=== PATIENT | male | born 1950 | race Caucasian/White ===

== ENCOUNTER 2025-01-15 23:25 | Observation (INO) ==
[2025-01-15 23:37] VITALS: TEMP 97.7
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
[2025-01-16 00:50] LABS: Basophils # (auto) 0.07 K/uL (0.00-0.20); Basophils % (auto) 0.6 %; Eosinophils # (auto) 0.04 K/uL (0.00-0.50); Eosinophils % (auto) 0.3 %; Hematocrit (blood only) 47.5 % (42.0-52.0); Hemoglobin 16.3 g/dl (14.0-18.0); Immature Granulocytes # (auto) 0.05 K/uL (0.01-0.20); Immature Granulocytes % (auto) 0.4 %; Lymphocytes # (auto) 2.09 K/uL (1.20-3.40); Lymphocytes % (auto) 16.5 %; Mean Corpuscular Hemoglobin 29.9 pg (25.0-34.0); Mean Corpuscular Hgb Conc 34.3 g/dL (32.0-36.0); Mean Corpuscular Volume 87.2 fL (80.0-100.0); Mean Platelet Volume 9.9 fL (9.4-12.4); Monocytes # (auto) 1.36 K/uL (0.11-0.59); Monocytes % (auto) 10.8 %; Neutrophils # (auto) 9.04 K/uL (1.40-6.50); Neutrophils % (auto) 71.4 %; Platelet Count 278 K/uL (130-400); RDW Coefficient of Variation 13.4 % (11.5-14.5); RDW Standard Deviation 42.2 fL (36.4-46.3); Red Blood Count 5.45 M/uL (4.70-6.10); White Blood Count 12.65 K/ul (4.8-10.8)
[2025-01-16 00:59] LABS: Albumin Globulin Ratio 1.2 (0.9-2); Albumin Level 3.9 gm/dl (3.4-5.0); BUN Creatinine Ratio 22.4 (10-20); Bilirubin,Total 0.8 mg/dl (0.2-1.0); Calcium 9.5 mg/dl (8.6-10.3); Creatinine Clr Calc Pharmacy 104.6 ml/min; Globulin 3.3 gm/dl (2.5-4.0); Potassium 3.7 mmol/L (3.5-5.1); Total Protein 7.2 gm/dl (6.0-8.3)
[2025-01-16 01:05] LABS: Troponin I High Sensitivity 9.7 pg/ml (0-20)
[2025-01-16 01:15] LABS: Thyroid Stimulating Hormone 4.258 uIu/ml (0.300-4.500)
--- NOTE | 2025-01-16 01:58 | CT Scan Report ---
EXAM: CT head/brain wo con CLINICAL HISTORY: altered ms TECHNIQUE: Multiple axial images are obtained from the skull base to the vertex without contrast. CT scan was performed according to ALARA (as low as reasonably achievable). COMPARISON: None. FINDINGS: There is cerebral atrophy. The patrick-white matter differentiation is preserved. There are scattered periventricular hypodensities as can be seen with chronic microvascular ischemic changes. No evidence of space occupying lesion, hemorrhage, edema, mass effect, midline shift, extra axial collection, or hydrocephalus is noted. Basal cisterns are symmetric and normal in size and configuration. Visualized paranasal sinuses and mastoid air cells are well aerated. Orbital contents are within normal limits. Bony structures are intact. IMPRESSION: 1. No evidence of acute intracranial abnormality is demonstrated. 2. Chronic microvascular ischemic changes. 3. Cerebral atrophy. MRI suggested for better evaluation if clinically indicated. Electronically signed by Jeramy Watson 01-16-2025 01:57 AM
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
[2025-01-16 04:15] LABS: Basophils # (auto) 0.05 K/uL (0.00-0.20); Basophils % (auto) 0.4 %; Eosinophils # (auto) 0.04 K/uL (0.00-0.50); Eosinophils % (auto) 0.3 %; Hematocrit (blood only) 46.2 % (42.0-52.0); Hemoglobin 15.9 g/dl (14.0-18.0); Immature Granulocytes # (auto) 0.04 K/uL (0.01-0.20); Immature Granulocytes % (auto) 0.3 %; Lymphocytes # (auto) 2.84 K/uL (1.20-3.40); Lymphocytes % (auto) 23.7 %; Mean Corpuscular Hemoglobin 30.2 pg (25.0-34.0); Mean Corpuscular Hgb Conc 34.4 g/dL (32.0-36.0); Mean Corpuscular Volume 87.7 fL (80.0-100.0); Mean Platelet Volume 9.2 fL (9.4-12.4); Monocytes # (auto) 1.13 K/uL (0.11-0.59); Monocytes % (auto) 9.4 %; Neutrophils # (auto) 7.88 K/uL (1.40-6.50); Neutrophils % (auto) 65.9 %; Platelet Count 263 K/uL (130-400); RDW Coefficient of Variation 13.4 % (11.5-14.5); RDW Standard Deviation 42.5 fL (36.4-46.3); Red Blood Count 5.27 M/uL (4.70-6.10); White Blood Count 11.98 K/ul (4.8-10.8)
[2025-01-16 04:34] LABS: BUN Creatinine Ratio 21.5 (10-20); Calcium 9.2 mg/dl (8.6-10.3); Creatinine Clr Calc Pharmacy 112.6 ml/min; Potassium 3.8 mmol/L (3.5-5.1)
--- NOTE | 2025-01-16 04:40 | XRay Report ---
EXAM: XR chest 1V portable CLINICAL HISTORY: Cardiac dysrhythmia. TECHNIQUE: An X-ray image of the chest is obtained in PA projection. COMPARISON: No prior studies are available for comparison. FINDINGS: Pulmonary Parenchyma: Bilateral increased bronchovascular markings. Suggestive of mild pulmonary vascular congestion. Left basal atelectasis. Otherwise, lungs are clear bilaterally. No evidence of consolidation, collapse, or focal opacities. No pulmonary nodules are identified. No evidence of pleural effusion or pleural thickening. Heart and Mediastinum: Cardiac size can not be assessed on this projection. No mediastinal widening or masses. No hilar or mediastinal lymphadenopathy. Bony Thorax: Degenerative changes of the visualized skeleton. Bony thorax appears intact without fractures or deformities. Soft Tissues: Soft tissues overlying the chest wall are unremarkable. IMPRESSION: 1. Mild pulmonary vascular congestion. Need clinical correlation. 2. Left basilar atelectasis. 3. No evidence of pulmonary consolidation. Electronically signed by Tremaine Ortega 01-16-2025 04:34 AM
[2025-01-16 05:00] VITALS: RESP 18
[2025-01-16 05:44] LABS: Appearance Urine Clear (Clear); Bilirubin Urine Negative (Negative); Blood Urine Negative (Negative); Color Urine Yellow; Glucose Urine UA Negative (Negative); Ketones Urine 3+ (Negative); Nitrite Urine Negative (Negative); Protein Urine Negative (Negative); Specific Gravity Urine 1.025 (1.000-1.030); Urobilinogen Urine Negative (Negative)
[2025-01-16 05:45] LABS: Leukocyte Esterase Urine Negative (Negative)
[2025-01-16 06:14] LABS: Amphetamines+Metham, Urine Neg (Neg); Barbiturates, Urine Neg (Neg); Benzodiazepine, Urine Neg (Neg); Cocaine, Urine Neg (Neg); Fentanyl, Urine Neg (Neg); MDMA (Ecstacy), Urine Neg (Neg); Marijuana, Urine Neg (Neg); Methadone, Urine Neg (Neg); Opiate, Urine Neg (Neg); Phencyclidine, Urine Neg (Neg)
[2025-01-16 07:09] LABS: Estimated Average Glucose 120 mg/dl; Hemoglobin A1C 5.8 % (4.5-5.6)
[2025-01-16 11:18] VITALS: BP 129/79; O2SAT 95
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
[2025-01-16 14:20] VITALS: PULSE 69
--- NOTE | 2025-01-18 15:37 | Electrocardiogram Report ---
Test Reason : Blood Pressure : */* mmHG Vent. Rate : 82 BPM Atrial Rate : 82 BPM P-R Int : 152 ms QRS Dur : 92 ms QT Int : 392 ms P-R-T Axes : -22 -53 25 degrees QTcB Int : 457 ms Normal sinus rhythm Left anterior fascicular block Abnormal ECG No previous ECGs available Confirmed by Cristino Saletr ([id number]) on 01/18/2025 3:37:02 PM Referred By: REFERRED SELF Confirmed By: Cristino Salter
--- NOTE | 2025-01-18 16:00 | Electrocardiogram Report ---
Test Reason : Blood Pressure : */* mmHG Vent. Rate : 71 BPM Atrial Rate : 71 BPM P-R Int : 130 ms QRS Dur : 82 ms QT Int : 376 ms P-R-T Axes : 65 56 47 degrees QTcB Int : 408 ms Normal sinus rhythm with sinus arrhythmia Normal ECG When compared with ECG of 15-Jan-2025 23:44, (unconfirmed) Multiple differences are observed, consider patient identification error Confirmed by Cristino Salter ([id number]) on 01/18/2025 4:00:07 PM Referred By: REFERRED SELF Confirmed By: Cristino Salter
== END 2025-01-16 17:24 | disposition home or self-care (01) | DRG 310 ==
LOC: ED 23:25 → 2S 01-16 03:54 → INTOOBSV 01-16 03:54 → 2S 01-16 05:01